=== PATIENT | female | born 1990 | race Hispanic/Latino ===

== ENCOUNTER 2019-08-02 11:30 | Emergency (ER) | payer OTHER ==
[~2019-08-02] VITALS: Ht 154.9 cm; Wt 64.4 kg
[2019-08-02 14:39] VITALS: BP 128/86
== END 2019-08-02 14:13 | disposition home or self-care (01) ==
LOC: M ED 11:30
DX: O99.511 Diseases of the respiratory system complicating pregnancy, first trimester (principal); J06.9 Acute upper respiratory infection, unspecified; B97.4 Respiratory syncytial virus as the cause of diseases classified elsewhere; Z3A.13 13 weeks gestation of pregnancy

== ENCOUNTER 2020-02-01 10:07 | Outpatient (CLI) | payer OTHER ==
[~2020-02-01] VITALS: Ht 154.9 cm; Wt 72.6 kg
[2020-02-01 10:26] VITALS: BP 143/85
[2020-02-01] MEDS ORDERED: PRENTAB9 PO (10:29)
[2020-02-01] MEDS ORDERED: VALT500T PO (10:33)
[2020-02-01 11:24] VITALS: BP 124/75
--- NOTE | 2020-02-01 14:28 | IPNPDOC ---
Obstetrical Progress Note Date of Service Feb 01, 2020 Subjective 29-year-old 1 at 39 weeks, presents to labor and delivery, complaints of contraction. She reports active movements. Denies any vaginal bleeding, leakage of fluid. Objective: Vital signs stable. She is afebrile. Category 1 heart tracing with contractions approximately every 5-8 minutes. General appearance well-appearing, no distress Abdomen: Gravid, nontender. Cervix: Fingertip 25% efface, -3 station. Assessment 29-year-old 1 at 9 weeks with contractions, not in active labor. Reassuring status. Plan: Home with labor precautions and kick count instructions. Follow-up at next OB appointment Objective Vital Signs Date Time Temp Pulse Resp B/P (MAP) Pulse Ox O2 Delivery O2 Flow Rate FiO2 02/01/20 11:24 79 124/75 (91) 02/01/20 10:26 98.3 20 Assessment Variability: Moderate Accelerations: Positive Heart Rate Tracing: Category I Tocometer Contractions: Yes Frequency: irregular Sterile Vaginal Examination Dilation: Fingertip Effacement (%): 30% Station: -3 Cervical Consistency: Firm Cervical Position: Posterior Postion/Presentation: Cephalic presentation Assessment and Plan Age: 29 Status: Reassuring CRISTIAN NEUMANN MD. Feb 01, 2020 14:28
== END 2020-02-01 13:00 | disposition home or self-care (01) ==
LOC: M LDO 10:07
PROVIDERS: ATTEND Obstetrics & Gynecology
DX: O47.1 False labor at or after 37 completed weeks of gestation (principal); Z3A.39 39 weeks gestation of pregnancy
CPT/HCPCS: G0378; G0463

== ENCOUNTER 2020-02-02 08:49 | Inpatient (IN) | payer OTHER ==
[2020-02-02] VITALS (20 sets, daily range): BP systolic 95–140; BP diastolic 51–98
[~2020-02-02] VITALS: Ht 154.9 cm; Wt 72.2 kg
[~2020-02-02 08:49] MED LIST: PRENTAB9 PO; VALT500T PO
[2020-02-02] MEDS ORDERED: LR 1,000 ML IV SCH (10:26)
[2020-02-02] MEDS ORDERED: LACTATED RINGER'S 1000 ML IV STA (10:26)
[2020-02-02] MEDS ORDERED: PENICILLIN G POTASSIUM IV 5 MU in D5W MINI-BAG PLUS 100 ML IV STA (10:26)
--- NOTE | 2020-02-02 10:59 | IPNPDOC ---
Obstetrical Progress Note Date of Service Feb 02, 2020 Subjective 29yo supa [id number] @39+4, complicated by HSV outbreak, denies current sx, presenting to labor and delivery with complaint of leaking fluid and increased frequecy of painful contractions, states reassuring FM Assessment Heart Rate (FHR): 130 Variability: Moderate Accelerations: Positive Decelerations: None Heart Rate Tracing: Category I Tocometer Contractions: Yes (every 2-4 min) Sterile Vaginal Examination Cervical Position: Posterior (visibly 1-2cm, +pooling, + ferning) Postion/Presentation: Cephalic presentation (by leopolds and ultrasound) Assessment and Plan Age: 29 : 1 Term: 0 Pre-term: 0 Abortions: 0 Livin Weeks & Days 39+4 Status: Reassuring Group B Streptococcus: Positive Anticipate: Vaginal Delivery Additional Comments admit to labor and delivery VIRGINIA VILLAGOMEZ CNM Feb 02, 2020 10:59
--- NOTE | 2020-02-02 11:20 | HPEPDOC ---
Obstetrical History & Physical General Date of Admission Feb 02, 2020 at 10:38 History of Present Illness 29yo supa [id number] @39+4, complicated by HSV outbreak, denies cur rent sx, kelly painfully, SROM clear at term, GBS+ Chief Complaint: Contractions, term (increasing in frequency since the previous evening), LOF, term (@0800) Information Provided By: Patient Age: 29 : 1 Term: 0 Pre-term: 0 Abortions: 0 Livin Care Care: Good Care Dating Final EDC: Feb 05, 2020 Final EDC for Daily Update: Feb 05, 2020 Final EDC by: LMP Estimated Date of Confinement: Feb 05, 2020 EGA at Admission: 39 (+4) Antepartum Course Diagnos(e)s HSV on valtrex Height (inches): 61 Pre- weight (lbs.): 140 Admission Weight (lbs.): 163 Change in Weight (lbs.): 23 Past Medical History Past Obstetrical History : Past 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: Herpes simplex virus(HSV) Past Medical History Medical History HSV in , heartburn Surgical History: Tonsilectomy Family History Significant Family History: No pertinent family hx, Hypertension (mother) Social History Marital Status: Family situation: Spouse/partner home Psychosocial History: No pertinent psych hx * Smoker: non-smoker Alcohol: Denies Abuse Violence Screening Have you been hit/kicked/slapp: No Have you been sexually assault: No Imunizations Tdap status: current Influenza Status: current Allergies Coded Allergies: No Known Allergies (Unverified , 08/02/19) Medications Scheduled No.137/Iron/Folic Acd ( Vitamin Tablet) 1 Each Tablet, 1 TAB PO DAILY Valacyclovir HCl (Valtrex) 500 Mg Tablet, 500 MG PO DAILY Physical Examination Physical Examination GENERAL: Alert and oriented times three. BREAST: . ABDOMEN: Gravid and non-tender to touch. FETUS: Is vertex (VTX) by sterile vaginal examination (SVE), fetus is vertex (VTX) by Anshu. HEART RATE: Regular rate and rhythm. LUNGS: Clear to auscultation (CTA). EXTREMITIES: No edema. No clonus. Deep tendon reflexes (DTRs) + . Other physical findings Cephalic by leopolds and TAUS Laboratory Data 24H LABS Laboratory Tests 2 02/02/20 10:55: Serology Scanned Report Hepatitis B Testing Pertinent Laboratoy Data Blood Type: O+ RBC Antibody Screen: Negative HIV: Negative Hepatitis B: Negative Rapid Plasma Reagin: Nonreactive Rubella: Immune Varicella: Immune Chlamydia/Gonorrhea: Negative Group B Streptococcus: Positive Cystic Fibrosis: Negative Anatomy Ultrasound Ultrasound Date: September 20, 2019 Placenta Location: Anterior Normal Anatomy: Yes Placenta Previa: No Estimated Weight (grams): 416 Assessment Variability: Moderate Accelerations: Positive Decelerations: None Tocometer Contractions: Yes (q2-4 min) Multi-drug resistant Organism: No history of MDRO Assessment/Plan Assessment 29yo supa [id number] @39+4, complicated by HSV outbreak, denies current sx, presenting to labor and delivery with complaint of leaking fluid and increased frequency of painful contractions, states reassuring FM Plan Admit and orient. Legal Services Professional and consent. Diet: [regular]. Group B Streptococcus (GBS) [positive] initiate prophylaxis per protocol. Labs and intravenous (IV) per unit protocol. Counseled on Pitocin and augmentation of labor. Lactated Ringers (LR): Bolus [1000] mL, then at [125] mL/hr. Anticipate [normal spontaneous delivery ()]. Continuous efm x2, monitor for change in or maternal status. Evaluate for change and need for augmentation as indicated after initial prophylaxis is complete. Labor and Delivery Counseling Pt consents for blood products and labor and delivery reviewed with pt expressed understanding and confirmation of consent. VIRGINIA VILLAGOMEZ CNM Feb 02, 2020 11:19
[2020-02-02 11:46] LABS: HEMATOCRIT 38.6 % (36.0-47.0); HEMOGLOBIN 13.1 g/dl (12.0-15.5); MEAN CORPUSCULAR HEMOGLOBIN 28.1 pg (27.0-33.0); MEAN CORPUSCULAR HGB CONC 33.9 g/dl (32.0-36.5); MEAN CORPUSCULAR VOLUME 82.7 fl (80.0-96.0); PLATELET COUNT, AUTOMATED 159 10^3/uL (150-450); RED BLOOD COUNT 4.67 10^6/uL (4.00-5.40); WHITE BLOOD COUNT 14.1 10^3/uL (4.0-10.0)
[2020-02-02] MEDS ORDERED: PROMETHAZINE INJ 25 MG/ML VIAL (J2550) IV ONE (14:30)
[2020-02-02] MEDS ORDERED: BUTORPHANOL 2 MG/ML INJ (J0595) IV ONE (14:30)
[2020-02-02] MEDS ORDERED: OXYTOCIN DRIP 30 UNITS in IV 1 EA IV SCH (14:30)
--- NOTE | 2020-02-02 14:35 | IPNPDOC ---
Obstetrical Progress Note Date of Service Feb 02, 2020 Subjective 29yo supa [id number] @39+4, complicated by HSV outbreak on valtrex, O+, GBS+, PROM Assessment Heart Rate (FHR): 150 Variability: Moderate Accelerations: Positive Decelerations: None Heart Rate Tracing: Category I Tocometer Contractions: Yes (q2-5 min) Strength: palpated as moderate Sterile Vaginal Examination Dilation: 1cm (-2cm) Effacement (%): 80% Station: -3 Cervical Consistency: Medium Cervical Position: Posterior Postion/Presentation: Cephalic presentation Assessment and Plan Age: 29 : 1 Term: 0 Pre-term: 0 Abortions: 0 Livin Weeks & Days 39+4 Status: Reassuring Group B Streptococcus: Positive Anticipate: Vaginal Delivery Additional Comments lr @125ml/hr, continuous efm x2, initiate pitocin augmentation and titrate per protocol, stadol 2mg ix x1 and 25mg phenergan iv x1 for pain, monitor for change in or maternal status, evaluate for change as indicated, anticipate vaginal delivery VIRGINIA VILLAGOMEZ CNM Feb 02, 2020 14:35
[2020-02-02] MEDS: PENICILLIN G POTASSIUM IV 2.5 MU in IV 1 EA IV SCH ×2 (16:54→20:38)
[2020-02-02] MEDS ORDERED: FENTANYL 2MCG/ML ROPIVACAINE 0.2% IN 0.9% NACL 100ML IVBAG As Ordered ONE (19:04)
[2020-02-02] MEDS ORDERED: ePHEDrine SULFATE 25 MG/5 ML(5MG/ML) SYRINGE As Ordered ONE (20:12)
[2020-02-02] MEDS ORDERED: FENTANYL/ROPIVACAINE/NACL BAG 100 ML EPIDURAL SCH (20:30)
[2020-02-02] MEDS ORDERED: EPIDURAL COMMENT XX SCH (20:30)
[2020-02-02] MEDS ORDERED: NALOXONE INJ 0.4MG/1ML VIAL (J2310 PER 1MG) IV PRN (20:30)
[2020-02-02] MEDS ORDERED: LACTATED RINGER'S 1000 ML IV PRN (20:30)
[2020-02-02] MEDS ORDERED: diphenhydrAMINE 50MG/ML VIAL (J1200) IV PRN (20:30)
[2020-02-02] MEDS ORDERED: EPIDURAL/PCA KEYS XX PRN (20:30)
[2020-02-02] MEDS ORDERED: REFRIGERATOR IV KEYS XX PRN (20:30)
[2020-02-02] MEDS ORDERED: ONDANSETRON 4MG/2ML VIAL IV PRN (20:30)
--- NOTE | 2020-02-02 20:38 | IPNPDOC ---
Text Note Date of Service The patient was seen on 02/02/20. NOTE Patient comfortable. VSS SVE /-2 AROM clear FHT Cat2, 130s, reactive, 2min decel in 60s IUPC placed, position changed, O2 FM placed A/P: Fetus now reassuring. Will start amnioinfusions since she was having variables prior to decels with AROM. VS,Fishbone, I+O VS, Fishbone, I+O Laboratory Tests 02/02/20 11:34 Vital Signs Date Time Temp Pulse Resp B/P (MAP) Pulse Ox O2 Delivery O2 Flow Rate FiO2 02/02/20 16:53 20 Ashly Lofton MD Feb 02, 2020 20:38
[2020-02-02] MEDS: ePHEDrine SULFATE 25 MG/5 ML(5MG/ML) SYRINGE IV PRN ×3 (21:42→21:51)
--- NOTE | 2020-02-02 22:38 | IPNPDOC ---
Text Note Date of Service The patient was seen on 02/02/20. NOTE Patient comfortable. Called for decreased variability. VSS, AF ABD NT, gravid FHT: Cat 2, 140s, some reactivity but decreased, 1 late decel, ctx q5-10 SVE 6-7/80/-1 A/P: Will restart pitocin and monitor fetus. D/w patient for possible CD if fetus doesn't tolerate. Will monitor. Fetus reacted to scalp stim. Will start Unasyn for presumed chorio. VS,Fishbone, I+O VS, Fishbone, I+O Laboratory Tests 02/02/20 11:34 Vital Signs Date Time Temp Pulse Resp B/P (MAP) Pulse Ox O2 Delivery O2 Flow Rate FiO2 02/02/20 16:53 20 Ashly Lofton MD Feb 02, 2020 22:38
[2020-02-02] MEDS ORDERED: UNASYN 3 GM VIAL As Ordered ONE (22:42)
[2020-02-02] MEDS ORDERED: AMPICILLIN SOD/SULBACTAM SOD 3 GM in D5W MINI-BAG PLUS 100 ML IV SCH (23:00)
[2020-02-03] VITALS (14 sets, daily range): BP systolic 97–125; BP diastolic 53–79
[2020-02-03] MEDS ORDERED: BICITRA 30ML SOLN UDC As Ordered ONE (00:59)
[2020-02-03] MEDS ORDERED: AZITHROMYCIN INJ 500MG VIAL (J0456 PER 500MG) As Ordered ONE (00:59)
[2020-02-03] MEDS ORDERED: SODIUM BICARBONATE 8.4% INJ 50 ML SYRINGE As Ordered ONE (01:12)
[2020-02-03] MEDS ORDERED: LIDOCAINE 2% W/EPINEPHRINE 20ML VIAL **PRES FREE As Ordered ONE (01:12)
--- NOTE | 2020-02-03 01:21 | IPNPDOC ---
Text Note Date of Service The patient was seen on 02/03/20. NOTE Patient comfortable. VSS, AF ABD NT, gravid SVE 8/80/-2 FHT: Cat 2, 180s, no variability, intermittent lates, ctx q4-6min A/P: Fetus with chorio and under stress with decompensation. Recommend CD. Patient counselled and given R/B/A. Patient agreed and signed consent. She u nderstood risks of infection, bleeding needing a blood transfusion, damage to adjacent structures, scarring, chronic pain, future sections, anesthesia complications, and . VS,Fishbone, I+O VS, Fishbone, I+O Laboratory Tests 02/02/20 11:34 Vital Signs Date Time Temp Pulse Resp B/P (MAP) Pulse Ox O2 Delivery O2 Flow Rate FiO2 02/02/20 16:53 20 Ashly Lofton MD Feb 03, 2020 01:21
[2020-02-03] MEDS ORDERED: BICITRA 30ML SOLN UDC PO ONE (01:30)
[2020-02-03] MEDS ORDERED: AZITHROMYCIN INJ 500 MG, VIAL MATE ADAPTER 1 EACH in D5W 250 ML IV ONE (01:30)
[2020-02-03] MEDS ORDERED: OXYTOCIN 30 UNITS IN 0.9% NaCl 500ML IV BAG (J2590) As Ordered ONE (01:33)
[2020-02-03] MEDS ORDERED: PHENYLephrine HCL 500 MCG/5 ML (100MCG/ML) SYRINGE (J2370) As Ordered ONE ×2 (01:37→02:04)
[2020-02-03] MEDS ORDERED: dexameTHASONE 4 MG/ML 1ML VIAL (J1100 PER 1MG) As Ordered ONE (01:37)
[2020-02-03] MEDS ORDERED: KETOROLAC 60MG 2ML VIAL As Ordered ONE (01:37)
[2020-02-03] MEDS ORDERED: ONDANSETRON 4MG/2ML VIAL As Ordered ONE (01:37)
[2020-02-03] MEDS ORDERED: MORPHINE PRES-FREE INJ 10 MG/10 ML VIAL (J2274) As Ordered ONE (01:39)
[2020-02-03] MEDS ORDERED: NALBUPHINE HCL 10 MG/ML AMP (J2300) IV PRN ×2 (02:00→02:30)
[2020-02-03] MEDS ORDERED: ONDANSETRON 4MG/2ML VIAL IV PRN ×2 (02:00→02:30)
[2020-02-03] MEDS ORDERED: METOCLOPRAMIDE INJ 10MG/2ML VIAL (J2765 PER 1) IV PRN (02:00)
[2020-02-03] MEDS ORDERED: NALOXONE INJ 0.4MG/1ML VIAL (J2310 PER 1MG) IV PRN ×2 (02:00)
[2020-02-03] MEDS ORDERED: diphenhydrAMINE 50MG/ML VIAL (J1200) IV PRN (02:00)
[2020-02-03] MEDS ORDERED: oxyCODONE 5MG TAB PO PRN (02:30)
[2020-02-03] MEDS ORDERED: fentaNYL 100 MCG/2 ML INJECTION (J3010) IV PRN (02:30)
[2020-02-03] MEDS ORDERED: LR 1,000 ML IV SCH ×2 (02:30→03:21)
[2020-02-03 02:37] LABS: CORD GAS ABE A -3.6; CORD GAS ABE V -2.8; CORD GAS HCO3 A 25.8 MEQ/L; CORD GAS O2 SAT A 39.2 %; CORD GAS O2 SAT V 64.9 %; CORD GAS PCO2 A 65.5 mmHg; CORD GAS PCO2 V 55.3 mmHg; CORD GAS PH A 7.213 UNITS; CORD GAS PH V 7.273 UNITS; CORD GAS PO2 A 20.5 mmHg; CORD GAS PO2 V 28.3 mmHg; CORD GAS SBC V 21.3 MEQ/L; CORD GAS TCO2 A 27.8 MEQ/L; CORD GAS TCO2 V 26.7 MEQ/L
--- NOTE | 2020-02-03 03:20 | ROOPDOC ---
[facility] Report Of Operation Report of Operation Preoperative Diagnosis: 1. Term . 2. PROM. 3. Chorioamniotis. 4. NRFHT Postoperative Diagnosis: 1. Term . 2. PROM. 3. Chorioamniotis. 4. NRFHT Surgery: Primary Low Transverse Section Surgeon: Ashly Lofton M.D. General Teller Surgeon: Kalani COYNE Anesthesia: Epidural Anesthesiologist: MALKA EBL: 300mL IV Fluids: 1500 mL LR Urine Output: Granados Catheter Specimen: Placenta, Cord gases Drains: Granados Catheter Complications: None Findings: Clear fluid, Normal uterus, tubes, and ovaries. Baby boy vertex 3112gm ([id number]) 8/9 . Procedure in Detail: Patient was brought back to the operating room. The epidural was rebolused and confirmed to be adequate. She was then laid in a supine position with a slight leftward tilt and draped and prepped in the usual sterile fashion. Confirmation of good anesthesia was performed and time out was done. Pfannensteil incision location was marked approximately 2cm above the pubic bone and approximately 9cm in length. The incision was made with a 12 blade scalpel and then carried through the subcutaneous tissue just barely piercing the midline of the fascia with electrocautery. The left side of the fascia was bluntly dissected free from the rectus muscle and elevated with a Aleah clamp and then transected with electrocautery. This was repeated on the right side. The superior fascia was grasped with two kochers and the rectus muscle was dissected free from the fascia with electrocautery. The two kochers were then brought to the inferior edges of the fascia to elevate and dissect the superior portion of the pyramidalis muscle from the fascia. The rectus muscle was divided along the midline and the peritoneum was entered bluntly superiorly. Retractors were placed. The uterovesical peritoneum was identified and grasped approximately 4cm superior to the bladder and incised with Metzenbaum scissors. The incision was carried bilaterally with the scissors and then inferiorly bluntly. The retractor was replaced to include the bladder flap. Uterine incision was then placed in the lower uterine segment transversely with a different 12 blade scalpel transversing approximately 2cm. The serosa and myometrium were gently cut into. Then a Aleah clamp was used to bluntly spread through the remainder of the uterus to avoid injuring the fetus. Amniotic sac was ruptured and fetus was in a OA position without a nuchal cord. I placed my hand into the uterus and flexed the head to allow delivery and then the body was delivered without difficulty. Mouth and nose were bulb suction. Cord was clamp x2 and cut and baby was handed to awaiting nurse with the above findings. The placenta was grasped and removed intact and normal. Uterus was exteriorized and wrapped in a damp lap and the inside was cleared of all clots and debris with a damp lap. The lower uterine incision edges were identified and grasped with T clamps. The uterine incision was closed with #1 Chromic in a running locked fashion. A second layer was performed with #1 Chromic in a horizontal mattress fashion for imbrication. Good hemostasis was noted. The posterior cul de sac was irrigated and cleared of all clots and debris. The uterus was replaced intra-abdominally. Both pericolic gutters were checked and cleared of all clots and debris. The incision was rechecked and found to be hemostatic. The retractors were removed. Three Aleah clamps were placed on the peritoneum for elevation and it was closed with 3-0 chromic, which was also used to reapproximate the lower edges of the rectus muscle. The rectus muscle was inspected and found to be hemostatic. The fascia was closed with 0 vicryl in a running unlocked fashion. The fascia was then checked to ensure there was no areas of looseness or defects, which there was not. The subcutaneous layer was irrigated and found to be hemostatic. The dermal edges were reaaproximated with 3-0 vicryl with interrupted U stitches. The epidermis was reapproximated with 3-0 Monocryl. A pressure dressing was then placed. The uterus was then expressed. The count for lap, needles, and instruments was correct times 3. The patient was in stable condition to the PACU. Ashly Lofton MD Feb 03, 2020 01:29
[2020-02-03] MEDS ORDERED: OXYTOCIN DRIP 30 UNITS in IV 1 EA IV SCH (03:21)
[2020-02-03] MEDS ORDERED: METHYLERGONOVINE MALEATE 0.2 MG TAB PO PRN (03:30)
[2020-02-03] MEDS ORDERED: MEASLES,MUMPS,RUBELLA VACCINE INJ (MMR-II) (90707) SC SCH (03:30)
[2020-02-03] MEDS ORDERED: RHOGAM 300 MCG (1500 IU) INJ (J2790) IM SCH (03:30)
[2020-02-03] MEDS ORDERED: HYDROmorphone 2 MG TAB PO PRN (03:30)
[2020-02-03] MEDS ORDERED: ANUSOL HC CREAM 30GM TOP PRN (03:30)
[2020-02-03] MEDS: DOCUSATE SODIUM 100 MG CAP PO SCH ×2 (08:36→20:40)
[2020-02-03] MEDS: ACETAMINOPHEN 500 MG TAB PO SCH ×3 (08:36→20:40)
[2020-02-03] MEDS ORDERED: INFLUENZA QUADRIVALENT PF VACCINE 0.5ML SYRINGE IM ONE (09:00)
[2020-02-03] MEDS: KETOROLAC 30 MG/ML 1ML VIAL IV SCH ×3 (09:33→20:39)
[2020-02-03] MEDS: PRENATAL VITAMINS CHEWABLE TABLET PO SCH (12:56)
[2020-02-04 02:00] VITALS: BP 119/84
[2020-02-04] MEDS: IBUPROFEN 800 MG TAB PO SCH ×3 (05:31→23:19)
[2020-02-04 06:00] VITALS: BP 126/73
[2020-02-04 07:23] LABS: HEMATOCRIT 31.3 % (36.0-47.0); MEAN CORPUSCULAR HEMOGLOBIN 27.7 pg (27.0-33.0); MEAN CORPUSCULAR HGB CONC 32.3 g/dl (32.0-36.5); MEAN CORPUSCULAR VOLUME 85.8 fl (80.0-96.0); PLATELET COUNT, AUTOMATED 119 10^3/uL (150-450); RED BLOOD COUNT 3.65 10^6/uL (4.00-5.40); WHITE BLOOD COUNT 9.5 10^3/uL (4.0-10.0)
[2020-02-04 07:33] LABS: HEMOGLOBIN 10.1 g/dl (12.0-15.5)
[2020-02-04] MEDS ORDERED: INFLUENZA QUADRIVALENT PF VACCINE 0.5ML SYRINGE IM ONE (09:00)
[2020-02-04] MEDS: DOCUSATE SODIUM 100 MG CAP PO SCH ×2 (09:55→20:17)
[2020-02-04] MEDS: PRENATAL VITAMINS CHEWABLE TABLET PO SCH (09:55)
[2020-02-04] MEDS: ACETAMINOPHEN 500 MG TAB PO SCH ×3 (09:56→20:17)
[2020-02-04 14:00] VITALS: BP 123/65
[2020-02-04 18:24] VITALS: BP 124/66
[2020-02-04] MEDS: MOM 30ML SUSPENSION UDC PO PRN (20:17)
[2020-02-04 22:00] VITALS: BP 131/74
[2020-02-05 06:00] VITALS: BP 126/64
[2020-02-05] MEDS: IBUPROFEN 800 MG TAB PO SCH ×3 (06:04→20:35)
[2020-02-05] MEDS ORDERED: INFLUENZA QUADRIVALENT PF VACCINE 0.5ML SYRINGE IM ONE (09:00)
[2020-02-05] MEDS: ACETAMINOPHEN 500 MG TAB PO SCH ×3 (09:05→20:35)
[2020-02-05] MEDS: DOCUSATE SODIUM 100 MG CAP PO SCH ×2 (09:09→20:35)
[2020-02-05] MEDS: PRENATAL VITAMINS CHEWABLE TABLET PO SCH (09:09)
[2020-02-05 18:14] VITALS: BP 137/77
--- NOTE | 2020-02-05 19:42 | IPNPDOC ---
Progress Note Date of Service: Feb 05, 2020 Day#: 2 Progress Note LATE ENTRY (DUE TO BEING IN L&D) SUBJECT: Patient is a 29-year-old 1 now Para 1 status post uncomplicated PLTCS for NRFHT due to chorioamniotis, doing well postoperative day # 2. She has been ambulating, voiding spontaneously without issue and tolerating regular diet. Pumping without issue. Reports lochia is less than normal period. Patient is ambulating well. Having decreased pain. Voiding and flatus without difficulty. OBJECTIVE: VITAL SIGNS: Within normal limits, afebrile. GENERAL: No acute distress HEENT: Mucous membranes are moist BREAST: Nontender, no erythema CARDIOVASCULAR: RRR RESPIRATORY: Bilaterally clear ABDOMINAL EXAMINATION: Soft, appropriate tenderness, nondistended, fundus -2 PERINEUM: Intact, minimal lochia EXTREMITIES: no edema, nontender WOUND: Dressing clean and intact ASSESSMENT: Patient is a 29-year-old 1 now Para 1 status post uncomplicated PLTCS for NRFHT due to chorioamniotis, doing well postoperative day # 2. Vitals within normal limits, afebrile, hemodynamically stable with no evidence of infection. PLAN: 1. Continue postoperative care. 2. Tylenol and Motrin and Vicodin for pain. 3. Encourage pumping and ambulation. VS, I&O, 24H, Fishbone Vital Signs/I&O Vital Signs Date Time Temp Pulse Resp B/P (MAP) Pulse Ox O2 Delivery O2 Flow Rate FiO2 02/05/20 18:14 98.5 82 18 137/77 (97) 99 Room Air I&O- Last 24 Hours up to 6 AM 02/05/20 06:00 Output Total 350 ml Balance -350 ml Ashly Lofton MD Feb 05, 2020 19:42
[2020-02-06] MEDS: IBUPROFEN 800 MG TAB PO SCH ×3 (05:43→22:05)
[2020-02-06 06:00] VITALS: BP 124/68
--- NOTE | 2020-02-06 08:25 | IPNPDOC ---
Progress Note Date of Service: Feb 06, 2020 Day#: 3 Progress Note SUBJECT: Patient is a 29-year-old 1 now Para 1 status post uncomplicated PLTCS for NRFHT due to chorioamniotis, doing well postoperative day # 3. She has been ambulating, voiding spontaneously without issue and tolerating regular diet. Pumping without issue. Reports lochia is less than normal period. Patient is ambulating well. Having more pain today after multiple trips to NICU. Voiding and flatus without difficulty. OBJECTIVE: VITAL SIGNS: Within normal limits, afebrile. GENERAL: No acute distress HEENT: Mucous membranes are moist BREAST: Nontender, no erythema but very firm CARDIOVASCULAR: RRR RESPIRATORY: Bilaterally clear ABDOMINAL EXAMINATION: Soft, appropriate tenderness, nondistended, fundus -3 PERINEUM: Intact, minimal lochia EXTREMITIES: no edema, nontender WOUND: clean and intact ASSESSMENT: Patient is a 29-year-old 1 now Para 1 status post uncomplicated PLTCS for NRFHT due to chorioamniotis, doing well postoperative day # 3. Vitals within normal limits, afebrile, hemodynamically stable with no evidence of infection. PLAN: 1. Continue postoperative care. 2. Tylenol and Motrin and Vicodin for pain. 3. Encourage pumping and ambulation. 4. Encourage breast massage and warm compresses VS, I&O, 24H, Fishbone Vital Signs/I&O Vital Signs Date Time Temp Pulse Resp B/P (MAP) Pulse Ox O2 Delivery O2 Flow Rate FiO2 02/05/20 18:14 98.5 82 18 137/77 (97) 99 Room Air I&O- Last 24 Hours up to 6 AM 02/05/20 06:00 Output Total 350 ml Balance -350 ml Ashly Lofton MD Feb 05, 2020 19:43
[2020-02-06] MEDS: PRENATAL VITAMINS CHEWABLE TABLET PO SCH (09:32)
[2020-02-06] MEDS: ACETAMINOPHEN 500 MG TAB PO SCH ×3 (09:34→21:00)
[2020-02-06] MEDS: DOCUSATE SODIUM 100 MG CAP PO SCH ×2 (09:34→20:02)
[2020-02-06 18:28] VITALS: BP 126/84
[2020-02-06] MEDS: MOM 30ML SUSPENSION UDC PO PRN (18:46)
[2020-02-07] MEDS: IBUPROFEN 800 MG TAB PO SCH ×2 (05:08→13:30)
[2020-02-07 06:00] VITALS: BP 132/72
--- NOTE | 2020-02-07 07:07 | IPNPDOC ---
Progress Note Date of Service: Feb 07, 2020 Day#: 4 Progress Note SUBJECT: Ms. Sampson is a 29yo POD4 s/p LTCD at term. She has been ambulating, v oiding spontaneously without issue and tolerating regular diet. Breast feeding without issue. Reports lochia is less than a normal period. Patient is ambulating well. Denies any pain. Voiding and stooling without difficulty. OBJECTIVE: VITAL SIGNS: Within normal limits, afebrile. Alert and oriented times three. Pulm: no increased WOB Heart rate: non-tachycardic Abdomen: Fundus firm at U-2. Soft, NTTP. Pfannenstiel incison is clean dry and well approx with dermabond [Minimal] lochia. ASSESSMENT: Ms. Sampson is a 29yo POD4 s/p LTCD at term. Vitals within normal limits, afebrile, hemodynamically stable with no evidence of infection. PLAN: 1. Discharge to home today. 2. Percocet and Motrin for pain. 3. Encourage breast feeding and ambulation. 4. Contraception: undecided, plan to discuss again at 2wk follow up 5. Routine PP visit in 2 and 6 weeks in clinic. 6. Discussed return precautions at length. VS, I&O, 24H, Fishbone Vital Signs/I&O Vital Signs Date Time Temp Pulse Resp B/P (MAP) Pulse Ox O2 Delivery O2 Flow Rate FiO2 02/07/20 06:00 98.7 81 18 132/72 (92) 02/05/20 18:14 99 Room Air ADONIS LE DO Feb 07, 2020 07:07
[2020-02-07] MEDS: PRENATAL VITAMINS CHEWABLE TABLET PO SCH (08:01)
[2020-02-07] MEDS: DOCUSATE SODIUM 100 MG CAP PO SCH (08:01)
[2020-02-07] MEDS: ACETAMINOPHEN 500 MG TAB PO SCH (08:02)
--- NOTE | 2020-02-17 16:44 | IPN ---
DATE: 02/04/2020 This is a 29-year-old 1, now para 1, admitted at 39 and 4 weeks of gestation. Had a primary section for chorioamnionitis and nonreassuring heart tones, a live male infant weighing 6 pounds 14 ounces. Arterial pH was 7.21, base excess -3.6, venous pH 7.27, base excess - 2.8. She was group B Streptococcus (GBS) positive, treated in time, she had a Herpes simplex virus (HSV) outbreak and was treated appropriately. This morning, her blood pressure is 126/73, respirations 18, pulse 81, temperature 97.6. Her hemoglobin was 13.1, hematocrit 38.6, and platelets are 159. We discussed phlebitis, cystitis, mastitis, endometritis, and cellulitis, diet, exercise, pain management, perineal, breast, and wound care. Plans are to machine operator picker her medications at [facility]. She should have a 2 week incision check at [facility] ([facility]), 6 week check. Presently, baby is in the intensive care unit (NICU) because of the chorioamnionitis. Plans are to circumcise the baby once it is discharged from the NICU. Presently, she is having difficulty in voiding. The Granados catheter was removed. She had straight catheterization of 1000 mL, then she was unable to void, another straight catheterization of 700. The Granados catheter was left in overnight and was just removed this morning on 02/04/2020 at 0600 hours. She is presently and doing well and our plans are to monitor her urinary output, if she is unable to void, clamp and drain for 24 hours. The patient expressed understanding of the plan of care. All questions were answered. BIRDIE
== END 2020-02-07 16:05 | disposition home or self-care (01) | DRG 771 ==
LOC: M LDO 08:49 → M LDI 10:38 → M OBS 02-03 03:07
PROVIDERS: ADMIT Registered Nurse; ATTEND Obstetrics & Gynecology
PROC: 10D00Z1 Extraction of Products of Conception, Low, Open Approach (ICD-10-PCS; principal; 2020-02-03 01:02)
DX: O42.02 Full-term premature rupture of membranes, onset of labor within 24 hours of rupture (principal); O41.1230 Chorioamnionitis, third trimester, not applicable or unspecified; O98.32 Other infections with a predominantly sexual mode of transmission complicating childbirth; A60.09 Herpesviral infection of other urogenital tract; O99.824 Streptococcus B carrier state complicating childbirth; O76 Abnormality in fetal heart rate and rhythm complicating labor and delivery; Z37.0 Single live birth; Z3A.39 39 weeks gestation of pregnancy

== ENCOUNTER 2021-08-10 05:28 | Inpatient (IN) | payer OTHER ==
[~2021-08-10] VITALS: Ht 154.9 cm; Wt 67.4 kg
[2021-08-10] VITALS (8 sets, daily range): BP systolic 109–117; BP diastolic 56–71
[~2021-08-10 05:28] MED LIST changes: +OMEP10CASR PO
[2021-08-10] MEDS ORDERED: LR 1,000 ML IV ONE (05:50)
[2021-08-10] MEDS ORDERED: ACET325C5 PO (05:56)
[2021-08-10] MEDS ORDERED: LR 1,000 ML IV SCH ×2 (06:05→09:35)
[2021-08-10] MEDS ORDERED: BICITRA 30ML SOLN UDC PO ONE (06:05)
[2021-08-10] MEDS ORDERED: LACTATED RINGER'S 1000 ML IV ONE (06:05)
[2021-08-10] MEDS ORDERED: ceFAZolin SOD 2 GM in IV 1 EA IV ONE (06:05)
[2021-08-10] MEDS ORDERED: HOME MED LIST COMPLETE! XX SCH (06:25)
[2021-08-10 06:30] LABS: HEMATOCRIT 37.8 % (36.0-47.0); HEMOGLOBIN 12.9 g/dl (12.0-15.5); MEAN CORPUSCULAR HGB CONC 34.1 g/dl (32.0-36.5); MEAN CORPUSCULAR VOLUME 82.2 fl (80.0-96.0); PLATELET COUNT, AUTOMATED 161 10^3/uL (150-450); WHITE BLOOD COUNT 9.2 10^3/uL (4.0-10.0)
[2021-08-10] MEDS ORDERED: MORPHINE PRES-FREE INJ 10 MG/10 ML VIAL (J2274) As Ordered ONE (07:15)
[2021-08-10] MEDS ORDERED: OXYTOCIN 30 UNITS IN 0.9% NaCl 500ML IV BAG (J2590) As Ordered ONE ×2 (07:15→08:48)
[2021-08-10] MEDS ORDERED: diphenhydrAMINE 50MG/ML VIAL (J1200) IV PRN (07:47)
[2021-08-10] MEDS ORDERED: ONDANSETRON 4MG/2ML VIAL IV PRN ×3 (07:47→09:35)
[2021-08-10] MEDS ORDERED: NALOXONE INJ 0.4MG/1ML VIAL (J2310 PER 1MG) IV PRN ×2 (07:47)
[2021-08-10] MEDS ORDERED: METOCLOPRAMIDE INJ 10MG/2ML VIAL (J2765 PER 1) IV PRN ×2 (07:47→09:35)
[2021-08-10] MEDS ORDERED: NALBUPHINE HCL 10 MG/ML AMP (J2300) IV PRN (07:47)
[2021-08-10 08:25] LABS: CORD GAS ABE A -3.5; CORD GAS HCO3 A 23.6 MEQ/L; CORD GAS PCO2 A 50.2 mmHg; CORD GAS PH A 7.29 UNITS; CORD GAS PO2 A 38.1 mmHg; CORD GAS SBC A 21.2 MEQ/L; CORD GAS TCO2 A 25.1 MEQ/L
[2021-08-10 08:27] LABS: CORD GAS ABE V -3.3; CORD GAS HCO3 V 22.8 MEQ/L; CORD GAS O2 SAT V 87.7 %; CORD GAS PCO2 V 44.6 mmHg; CORD GAS PH V 7.326 UNITS; CORD GAS PO2 V 45.2 mmHg; CORD GAS SBC V 21.5 MEQ/L; CORD GAS TCO2 V 24.1 MEQ/L
[2021-08-10] MEDS ORDERED: ONDANSETRON 4MG/2ML VIAL As Ordered ONE (08:48)
[2021-08-10] MEDS ORDERED: KETOROLAC 60MG 2ML VIAL As Ordered ONE (08:48)
[2021-08-10] MEDS ORDERED: SIMETHICONE 80MG CHEW TAB PO PRN (09:00)
[2021-08-10] MEDS ORDERED: RHOGAM 300 MCG (1500 IU) INJ (J2790) IM SCH (09:05)
[2021-08-10] MEDS ORDERED: MEASLES,MUMPS,RUBELLA VACCINE INJ (MMR-II) (90707) SC SCH (09:05)
[2021-08-10] MEDS ORDERED: oxyCODONE 5MG TAB PO PRN ×2 (09:05)
[2021-08-10] MEDS ORDERED: PROMETHAZINE 25 MG TAB PO PRN (09:05)
[2021-08-10] MEDS ORDERED: OXYTOCIN DRIP 30 UNITS in IV 1 EA IV SCH (09:05)
[2021-08-10] MEDS ORDERED: PERCOCET 5MG/325MG TAB PO PRN (09:35)
[2021-08-10] MEDS ORDERED: fentaNYL 100 MCG/2 ML INJECTION IV PRN (09:35)
[2021-08-10] MEDS: PRENATAL VITAMINS CHEWABLE TABLET PO SCH (10:08)
[2021-08-10] MEDS: DOCUSATE SODIUM 100MG CAPSULE PO SCH ×2 (10:08→21:14)
[2021-08-10] MEDS: ACETAMINOPHEN 500 MG TAB PO SCH ×3 (10:40→22:23)
[2021-08-10] MEDS: LR 1,000 ML IV SCH ×3 (13:46→21:41)
[2021-08-10] MEDS: KETOROLAC 30 MG/ML 1ML VIAL IV SCH ×2 (15:52→21:15)
[2021-08-11 02:00] VITALS: BP 116/67
[2021-08-11] MEDS: KETOROLAC 30 MG/ML 1ML VIAL IV SCH (03:00)
[2021-08-11] MEDS: ACETAMINOPHEN 500 MG TAB PO SCH ×4 (04:09→22:54)
[2021-08-11 06:00] VITALS: BP 116/56
[2021-08-11 07:31] LABS: HEMATOCRIT 31.2 % (36.0-47.0); MEAN CORPUSCULAR HGB CONC 33.3 g/dl (32.0-36.5); MEAN CORPUSCULAR VOLUME 83.9 fl (80.0-96.0); PLATELET COUNT, AUTOMATED 128 10^3/uL (150-450); RED BLOOD COUNT 3.72 10^6/uL (4.00-5.40); WHITE BLOOD COUNT 7.5 10^3/uL (4.0-10.0)
[2021-08-11 07:38] LABS: HEMOGLOBIN 10.4 g/dl (12.0-15.5)
[2021-08-11] MEDS: DOCUSATE SODIUM 100MG CAPSULE PO SCH ×2 (09:45→20:28)
[2021-08-11] MEDS: PRENATAL VITAMINS CHEWABLE TABLET PO SCH (09:45)
[2021-08-11 10:00] VITALS: BP 111/65
[2021-08-11] MEDS: IBUPROFEN 800 MG TAB PO SCH ×2 (13:42→19:28)
[2021-08-11 13:53] VITALS: BP 114/56
[2021-08-11 18:06] VITALS: BP 109/65
[2021-08-11 22:00] VITALS: BP 104/61
[2021-08-12 02:00] VITALS: BP 107/64
[2021-08-12] MEDS: ACETAMINOPHEN 500 MG TAB PO SCH ×2 (04:10→10:16)
[2021-08-12] MEDS: IBUPROFEN 800 MG TAB PO SCH ×2 (04:11→10:30)
[2021-08-12 05:30] VITALS: BP 110/74
[2021-08-12] MEDS ORDERED: PRENCHW PO (07:35)
[2021-08-12] MEDS ORDERED: OXYC-517 PO (07:35)
[2021-08-12] MEDS ORDERED: IBUP80TA PO (07:35)
[2021-08-12] MEDS ORDERED: COLA100C5 PO (07:35)
[2021-08-12] MEDS: DOCUSATE SODIUM 100MG CAPSULE PO SCH (08:51)
[2021-08-12] MEDS: PRENATAL VITAMINS CHEWABLE TABLET PO SCH (08:51)
== END 2021-08-12 13:05 | disposition home or self-care (01) | DRG 773 ==
LOC: M LDI 05:28 → M OBS 10:24
PROVIDERS: ADMIT Obstetrics & Gynecology; ATTEND Obstetrics & Gynecology
PROC: 10D00Z1 Extraction of Products of Conception, Low, Open Approach (ICD-10-PCS; principal; 2021-08-10 07:30)
DX: O34.211 Maternal care for low transverse scar from previous cesarean delivery (principal); Z3A.39 39 weeks gestation of pregnancy; Z37.0 Single live birth